=== PATIENT | female | born 1965 | race Two or more races ===

== ENCOUNTER 2019-07-02 12:19 | Emergency (ER) | payer SELFPAY ==
[~2019-07-02] VITALS: Ht 165.1 cm; Wt 87.1 kg
[2019-07-02] MEDS ORDERED: KETOROLAC TROMETHAMINE INJ 60 MG/2 ML VIAL IM ONE ×2 (13:00)
--- NOTE | 2019-07-02 13:28 | NUR ---
PATIENT AWAKE ALERT NON DISTRESS STATED HEADACHE IS BETTER CONTINUE TO MONITOR
[2019-07-02 13:40] VITALS: BP 134/56
--- NOTE | 2019-07-02 13:43 | NUR ---
Patient discharged to home in stable condition. Written and verbal after care instructions given. Patient verbalizes understanding of instruction.
--- NOTE | 2019-07-02 13:43 | NUR ---
Patient awake alert able to ambulated non distress
== END 2019-07-02 13:46 | disposition home or self-care (01) ==
LOC: ER 12:30
DX: R51 Headache (principal); I10 Essential (primary) hypertension
CPT/HCPCS: 96372; 99283; J1885